=== PATIENT | male | born 1985 | race Two or more races ===

== ENCOUNTER → 2016-12-16 | Outpatient (CLI) | payer BC | END | disposition home or self-care (01) | LOC: CARD 08:20 | PROVIDERS: ATTEND Internal Medicine Cardiovascular Disease | DX: R07.9 Chest pain, unspecified (principal) | CPT/HCPCS: 93017 ==

== ENCOUNTER → 2018-07-07 | Outpatient (CLI) | payer OTHER ==
[~2018-07-07] MED LIST: OMNIPAQUE 350 MG/ML, 75ML BOTTLE ONE
== END | disposition home or self-care (01) ==
LOC: CFH 09:01
PROVIDERS: ATTEND Internal Medicine Cardiovascular Disease
DX: J98.11 Atelectasis (principal); J18.9 Pneumonia, unspecified organism
CPT/HCPCS: 71260; Q9967

== ENCOUNTER → 2018-07-23 | Outpatient (CLI) | payer OTHER | END | disposition home or self-care (01) | LOC: CFH 13:29 | PROVIDERS: ATTEND Internal Medicine Cardiovascular Disease | DX: I07.1 Rheumatic tricuspid insufficiency (principal); I37.1 Nonrheumatic pulmonary valve insufficiency; R07.9 Chest pain, unspecified; E78.5 Hyperlipidemia, unspecified | CPT/HCPCS: 93306 ==

== ENCOUNTER → 2018-08-24 | Outpatient (CLI) | payer OTHER | END | disposition home or self-care (01) | LOC: CFH 07:41 | PROVIDERS: ATTEND Internal Medicine | DX: R07.9 Chest pain, unspecified (principal) | CPT/HCPCS: 71260; Q9967 ==

== ENCOUNTER 2019-04-06 09:44 | Emergency (ER) | payer OTHER ==
[~2019-04-06] VITALS: Ht 165.1 cm; Wt 68.4 kg
--- NOTE | 2019-04-06 10:14 | NUR ---
pt presents to ED with c/o left sided chest pain that has been present x 1 year intermittently, but has been increasing in last two weeks. pt states chest pain was more severe than usual yesterday, and coincidentally had a boat ride operator appointment at [facility]. Pt's boat ride operator prescribed pt with a new medication for chest pain (pt cannot recall name) and hyperlipidemia, however he has not filled these yet. pt states he previously had prescription for nitro, took a dose 1 hr ago and it provided a small amount of relief. pt rates chest pain at 4/10 at this time, pt states pain has radiated to left arm before (yesterday), but denies radiating pain today. pt denies any other symptoms at this time. pt states pain is increased with anxiety. pt attached to all monitors, ST elevation noted to V leads on monitor. EDMD Norris notified. EKG taken in triage on arrival, repeat EKG completed by EDT at this time. Pt a&o, resps even and unlabored, nadn. pt is NSR on monitoring analyst. Call light in reach. labs and xray ordered.
[2019-04-06] MEDS ORDERED: ASPIRIN 81 MG TABLET CHEW PO ONE (10:30)
--- NOTE | 2019-04-06 10:36 | NUR ---
ELLIE Pisano at bedside.
[2019-04-06 10:44] LABS: BASOPHILS # (AUTO) 0.04 x10^3/uL (0-0.1); BASOPHILS % (AUTO) 1 % (0-1); EOSINOPHILS # (AUTO) 0.09 x10^3/uL (0-0.4); EOSINOPHILS % (AUTO) 1 % (1-7); LYMPHOCYTES # (AUTO) 2.62 x10^3/uL (1-3.4); LYMPHOCYTES % (AUTO) 40 % (22-44); MD NO; MEAN CORPUSCULAR HGB CONC 32.7 g/dL (33.2-36.2); MEAN CORPUSCULAR VOLUME 82.5 fL (81-97); MEAN PLATELET VOLUME 9.3 fL (7.4-10.4); MONOCYTES # (AUTO) 0.47 x10^3/uL (0.2-0.8); MONOCYTES % (AUTO) 7 % (2-9); NEUTROPHILS # (AUTO) 3.38 x10^3/uL (1.8-6.8); NEUTROPHILS % (AUTO) 51 % (42-75); PLATELET COUNT 243 x10^3/uL (130-400); RED BLOOD COUNT 5.35 x10^6/uL (4.38-5.82); RED CELL DISTRIBUTION WIDTH 12.7 % (9.4-14.8)
[2019-04-06] MEDS ORDERED: ASPIRIN 81 MG TABLET CHEW ONE (10:44)
[2019-04-06 10:58] LABS: ALANINE AMINOTRANSFERASE 37 U/L (12-78); ALBUMIN 3.9 g/dL (3.4-5.0); ANION GAP 4 mmol/L (5-15); CALCIUM 8.5 mg/dL (8.5-10.1); CHLORIDE 106 mmol/L (98-107)
[2019-04-06 11:02] LABS: HCT (SEDRATE) 44.5 % (39.2-51.8)
[2019-04-06 11:03] LABS: ALKALINE PHOSPHATASE 61 U/L (45-117); BILIRUBIN,TOTAL 0.7 mg/dL (0.2-1.0); TOTAL PROTEIN 7.4 g/dL (6.4-8.2); TROPONIN I < 0.015 ng/mL (0.000-0.045)
--- NOTE | 2019-04-06 12:17 | NUR ---
pt resting on gurney, resps even and unlabored. sinus heather rate 50's on water mechanic. pt reports CP level is 3/10 at this time. results and POC being explained by ELLIE Pisano at bedside at this time.
--- NOTE | 2019-04-06 12:45 | NUR ---
REPORT GIVEN TO TASK JAYLEEN BROCK.
[2019-04-06 13:38] VITALS: BP 104/65
--- NOTE | 2019-04-06 13:40 | NUR ---
Pt a&o, resps even and unlabored, sinus heather rate 50s on curator [employer], no ectopy noted. Pt given dc instructions and script, educated regarding dc rx for naproxen. pt a&o, resps even and unlabored, nadn at dc. pt amb to dc desk with steady gait.
== END 2019-04-06 13:40 | disposition home or self-care (01) ==
LOC: ED 10:48
DX: R07.89 Other chest pain (principal)
CPT/HCPCS: 36415; 71045; 80053; 83605; 84484; 85025; 85379; 85651; 93005; 99284

== ENCOUNTER → 2019-08-09 | Outpatient (CLI) | payer OTHER | END | disposition home or self-care (01) | LOC: CFH 13:47 | PROVIDERS: ATTEND Internal Medicine Cardiovascular Disease | DX: I08.8 Other rheumatic multiple valve diseases (principal) | CPT/HCPCS: 93306 ==

== ENCOUNTER → 2020-07-10 | Outpatient (CLI) | payer OTHER | END | disposition home or self-care (01) | LOC: CFH 13:27 | PROVIDERS: ATTEND Internal Medicine Cardiovascular Disease | DX: I08.8 Other rheumatic multiple valve diseases (principal); R07.9 Chest pain, unspecified | CPT/HCPCS: 93306 ==